=== PATIENT | female | born 1945 | race Native Hawaiian/Other Pacific Islander ===

== ENCOUNTER 2017-04-15 00:01 | Emergency (ER) | payer MEDICARE ==
[2017-04-15 00:27] VITALS: BP 145/76; PULSE 94; RESP 19; O2SAT 99
--- NOTE | 2017-04-15 00:58 | ED PDOC ---
Arrival/HPI - General Historian: Patient - History of Present Illness Time/Duration: 4-6 hours Symptom Onset: Sudden Symptom Course: Unchanged Activities at Onset: Rest, Light Context: Home - General Chief Complaint: Dizziness/Lightheaded - History of Present Illness Narrative History of Present Illness (Text): 04/15/17 00:58 Mrs. Duarte is a 72 year old female with no significant past medical history who presents to the [facility] [place] department with a chief complaint of dizziness. Patient states that earlier this afternoon, she was busy with housework when she suddenly felt dizzy. She immediately sat down and reports that after 15-20 minutes that the dizziness subsided. She reports that later on in the evening, she had an episode of shaking chills and decided that she should get checked out. She also mentioned that she has been having urinary frequency without any associated dysuria or hematuria. Patient denies any fever , weight loss, night sweats, headache, changes in her vision/hearing/smell, dysphagia, chest pain, palpitations, shortness of breath, cough, wheezing, abdominal pain, N/V, diarrhea, constipation, rash, seizure, changes in her gait , slurred speech or any numbness/tingling/weakness of any extremity. (KATIE WINN) Past Medical History - Provider Review Nursing Documentation Reviewed: Yes - Travel History Have you recently traveled outside [place] w/in the past 3 mons?: No - Past History Past History: No Previous - Infectious Disease Hx of Infectious Diseases: None - Tetanus Immunization Tetanus Immunization: Unknown - Neurological Hx Dizziness: Yes - Psychiatric Hx Substance Use: No - Surgical History Hx Cataract Extraction: Yes Hx Hysterectomy: Yes - Anesthesia Hx Anesthesia: Yes Hx Anesthesia Reactions: No Hx Malignant Hyperthermia: No Family/Social History - Physician Review Nursing Documentation Reviewed: Yes Family/Social History: No Known Family HX Smoking Status: Never Smoked Hx Alcohol Use: No Hx Substance Use: No Allergies/Home Meds Allergies/Adverse Reactions: Allergies No Known Allergies Allergy (Verified 04/15/17 00:27) Home Medications: Home Meds Medication Instructions Recorded Confirmed No Known Home Med 04/15/17 04/15/17 Review of Systems - Physician Review All systems were reviewed & negative as marked: Yes - Review of Systems Constitutional: Other (Endorses shaking chills). absent: Normal, Weight Change , Fevers, Night Sweats Eyes: Normal. absent: Vision Changes ENT: Normal, Other (Denies changes in smell). absent: Hearing Changes Respiratory: Normal. absent: SOB, Cough, Wheezing Cardiovascular: Normal. absent: Chest Pain, Palpitations, Syncope Gastrointestinal: Normal. absent: Abdominal Pain, Constipation, Diarrhea, Nausea, Vomiting Genitourinary Female: Frequency. absent: Normal, Dysuria, Hematuria Musculoskeletal: Normal Skin: Normal. absent: Rash Neurological: Dizziness, Other (Denies any numbness/tingling/weakness of any extremity). absent: Normal, Headache, Focal Weakness, Gait Changes, Speech Changes, Facial Droop, Seizure Physical Exam Vital Signs Reviewed: Yes Temperature: Afebrile Blood Pressure: Normal Pulse: Regular Respiratory Rate: Normal Appearance: Positive for: Well-Appearing, Non-Toxic, Comfortable Pain Distress: None Mental Status: Positive for: Alert and Oriented X 3 - Systems Exam Head: Present: Atraumatic, Normocephalic Pupils: Present: PERRL Extroacular Muscles: Present: EOMI Conjunctiva: Present: Normal Mouth: Present: Moist Mucous Membranes Pharnyx: Present: Normal. No: ERYTHEMA, EXUDATE, TONSILS ENLARGED Nose (External): Present: Atraumatic Nose (Internal): Present: Normal Inspection Neck: Present: Normal Range of Motion, Trachea Midline. No: Meningeal Signs, MIDLINE TENDERNESS, Paraspinal Tenderness, JVD, Lymphadenopathy Respiratory/Chest: Present: Clear to Auscultation, Good Air Exchange. No: Respiratory Distress, Accessory Muscle Use, Wheezes, Decreased Breath Sounds, Rales, Retracting, Rhonchi, Tachypneic, Tender to Palpation Cardiovascular: Present: Regular Rate and Rhythm, Normal S1, S2, Peripheal Pulses Present. No: Murmurs, Irregular Rhythm, Tachycardic, Bradycardic, Rub, Gallop, Muffled Abdomen: Present: Normal Bowel Sounds. No: Tenderness, Distention, Peritoneal Signs Back: Present: Normal Inspection. No: CVA Tenderness, Midline Tenderness, Paraspinal Tenderness Upper Extremity: Present: Normal Inspection, Normal ROM, NORMAL PULSES, Neurovascularly Intact, Capillary Refill < 2s. No: Cyanosis, Edema Lower Extremity: Present: Normal Inspection, NORMAL PULSES, Normal ROM, Neurovascularly Intact, Capillary Refill < 2 s. No: Edema, CALF TENDERNESS Neurological: Present: GCS=15, CN II-XII Intact, Speech Normal, Motor Func Grossly Intact, Normal Sensory Function, Gait Normal Skin: Present: Warm, Dry, Normal Color. No: Rashes Lymphatic: No: Cervical Adenopathy Psychiatric: Present: Alert, Oriented x 3, Normal Insight, Normal Concentration Vital Signs Temp Pulse Resp BP Pulse Ox 04/15/17 00:21 97 F L 94 H 19 145/76 99 Medical Decision Making - Lab Interpretations I have reviewed the lab results: Yes Interpretation: All labs normal - RAD Interpretation Diesel Engine Specialist: Radiologist - EKG Interpretation Interpreted by ED Physician: Yes Type: 12 lead EKG ED Course and Treatment: Pt seen and evaluated with health care / medical job titles. Pt, with no significant past medical history, presented for dizziness, chills, and urinary frequency. Aware and agree with HPI, clinical findings, plan, and management. Plan: -- CT Head w/o contrast -- EKG -- Chest X-ray -- Labs, cardiac enzymes, BNP -- UA -- Reassess and disposition (Bharathi Fish) 04/15/17 01:10 Impression: 72 year old female with no significant past medical history who presents to the [facility] [place] department with a chief complaint of dizziness Plan: -CBC, CMP, Urinalysis, Cardiac Iso, BNP -EKG -Chest X-Ray -CT head w/o contrast -Reassess and disposition Prior Visits: No previous visits (KATIE WINN) - Lab Interpretations Lab Results: 04/15/17 00:50 04/15/17 00:50 Lab Results 04/15/17 00:50: Urine Color Straw, Urine Appearance Cloudy, Urine pH 7.0, Ur Specific Thicket 1.010, Urine Protein Trace H, Urine Glucose (UA) Negative, Urine Ketones Negative, Urine Blood Trace-lysed H, Urine Nitrate Negative, Urine Bilirubin Negative, Urine Urobilinogen 0.2, Ur Leukocyte Esterase Negative , Urine RBC 0 - 2, Urine WBC 0 - 2, Ur Epithelial Cells 0 - 2 04/15/17 00:50: WBC 7.1, RBC 4.05, Hgb 12.9, Hct 37.2, MCV 91.9, MCH 31.9, MCHC 34.7, RDW 12.6, Plt Count 210, MPV 8.8, Gran % 70.6 H, Lymph % (Auto) 17.2 L, [place] % (Auto) 8.0 H, Eos % (Auto) 3.8, Baso % (Auto) 0.4, Gran # 5.00, Lymph # 1.2, [place] # 0.6, Eos # 0.3, Baso # 0.03 04/15/17 00:50: Sodium 140, Potassium 3.8, Chloride 100, Carbon Dioxide 28, Anion Gap 16, BUN 9, Creatinine 0.7, Est GFR ( Amer) > 60, Est GFR (Non- Af Amer) > 60, Random Glucose 99, Calcium 10.0, Total Bilirubin 0.5, AST 34, ALT 36, Alkaline Phosphatase 58, Lactate Dehydrogenase 633, Total Creatine Kinase 83, Troponin I < 0.01, NT-Pro-B Natriuret Pep 148, Total Protein 8.5 H, Albumin 5.1 H, Globulin 3.4, Albumin/Globulin Ratio 1.5 - RAD Interpretation Radiology Orders: 04/15/17 00:49 HEAD W/O CONTRAST [CT] Stat CHEST PORTABLE [RAD] Stat Disposition/Present on Arrival - Present on Arrival Any Indicators Present on Arrival: No History of DVT/PE: No History of Uncontrolled Diabetes: No Urinary Catheter: No History of Decub. Ulcer: No History Surgical Site Infection Following: None - Disposition Have Diagnosis and Disposition been Completed?: Yes Disposition Time: 02:50 - Disposition Diagnosis: Vertigo Condition: GOOD Discharge Instructions (ExitCare): Vertigo (ED) Additional Instructions: Ms. Duarte, thank you for letting us take care of you today. Your provider was Dr. Fish. You were treated for dizziness. The emergency medical care you received today was directed at your acute symptoms. If you were prescribed any medication, please fill it and take as directed. It may take several days for your symptoms to resolve. Return to the Emergency Department if your symptoms worsen, do not improve, or if you have any other problems. Please contact your doctor or call one of the physicians/clinics you have been referred to that are listed on the Patient Visit Information form that is included in your discharge packet. Bring any paperwork you were given at discharge with you along with any medications you are taking to your follow up visit. Our treatment cannot replace ongoing medical care by a primary care provider (PCP) outside of the emergency department. PLEASE FOLLOW UP WITH YOUR PRIMARY CARE DOCTOR WITHIN ONE TO TWO WEEKS Thank you for allowing the [facility] team to be part of your care today. If you had an X-Ray or CT scan: A Radiologist will review the ED reading if any change in treatment is needed we will contact you. Forms: [facility]) ([place])
[2017-04-15 01:11] LABS: BASO # 0.03 K/mm3 (0.0-2.0); BASO % 0.4 % (0.0-3.0); EOS # 0.3 (0.0-0.7); EOS % 3.8 % (1.5-5.0); GRAN % 70.6 % (50.0-68.0); HEMATOCRIT 37.2 % (36.0-48.0); LYMPH # 1.2 (1.2-3.4); LYMPH % 17.2 % (22.0-35.0); MEAN CELL VOLUME 91.9 fl (80.0-105.0); MEAN CORPUSCULAR HEMOGLOBIN 31.9 pg (25.0-35.0); MEAN CORPUSCULAR HGB CONC 34.7 g/dl (31.0-37.0); MEAN PLATELET VOLUME 8.8 fl (7.0-11.0); MONO # 0.6 (0.1-0.6); RED CELL DISTRIBUTION WIDTH 12.6 % (11.5-14.5); WHITE BLOOD COUNT 7.1 10^3/ul (4.5-11.0)
[2017-04-15 01:12] LABS: URINE BILIRUBIN NEGATIVE (NEGATIVE); URINE BLOOD TRACE-LYSED (NEGATIVE); URINE GLUCOSE (UA) NEGATIVE (NEGATIVE); URINE KETONE NEGATIVE (NEGATIVE); URINE LEUKOCYTE ESTERASE NEGATIVE Leu/uL (NEGATIVE); URINE PROTEIN TRACE mg/dL (<30 mg/dL); URINE UROBILINOGEN 0.2 E.U./dL (<1 E.U./dL)
[2017-04-15 01:19] LABS: URINE APPEARANCE CLOUDY (CLEAR); URINE COLOR STRAW (YELLOW)
[2017-04-15 01:20] LABS: ALB/GLOB RATIO 1.5 (1.1-1.8); ALKALINE PHOSPHATASE 58 U/L (38-126); ALT/SGPT 36 U/L (7-56); AST/SGOT 34 U/L (14-36); BILIRUBIN,TOTAL 0.5 mg/dL (0.2-1.3); BLOOD UREA NITROGEN 9 mg/dL (7-21); CARBON DIOXIDE 28 mmol/L (21-33); CHLORIDE 100 mmol/L (98-107); GFR AFRICAN-AMERICAN > 60; GLUCOSE,RANDOM 99 mg/dL (70-110); POTASSIUM 3.8 mmol/L (3.6-5.0); SODIUM 140 mmol/L (132-148); TOTAL PROTEIN 8.5 g/dL (5.8-8.3)
[2017-04-15 01:30] LABS: URINE EPITHELIAL CELLS 0 - 2 /hpf (0-5); URINE RBC 0 - 2 /hpf (0-2); URINE WBC 0 - 2 /hpf (0-6)
--- NOTE | 2017-04-15 01:36 | CT ---
EXAM: CT Head Without Intravenous Contrast EXAM DATE/TIME: 04/15/2017 12:49 AM CLINICAL HISTORY: 72 years old, female; Signs and symptoms; Dizziness TECHNIQUE: Axial computed tomography images of the head/brain without intravenous contrast. All CT scans at this facility use one or more dose reduction techniques, viz.: automated exposure control; ma/kV adjustment per patient size (including targeted exams where dose is matched to indication; i.e. head); or iterative reconstruction technique. COMPARISON: There are no prior studies for comparison. FINDINGS: Brain: Ventricles are normal in size and configuration. There is no midline shift. There is mild prominence of sulci and gyri. There are no intra-axial or extra-axial mass lesions or areas of hemorrhage.There are basal ganglia calcifications bilaterally. There is an age-indeterminate lacunar infarct in left basal ganglia. There are no abnormal fluid collections. Franco-white differentiation is maintained. Ventricles: See above Bones: Cranial vault is intact. Soft tissues: unremarkable Sinuses: There is mucoperiosteal thickening in frontal and ethmoid sinuses Ears and mastoids: Middle ears and mastoids are unremarkable Orbits: Orbital contents are unremarkable. IMPRESSION: Age-indeterminate left basal ganglia lacunar infarct, no bleed
[2017-04-15 01:51] LABS: TROPONIN I < 0.01 ng/mL
[2017-04-15 03:32] VITALS: TEMP 97
--- NOTE | 2017-04-15 08:42 | RAD ---
HISTORY: dizziness COMPARISON: No prior. FINDINGS: LUNGS: No active pulmonary disease. PLEURA: No significant pleural effusion identified, no pneumothorax apparent. CARDIOVASCULAR: Normal. OSSEOUS STRUCTURES: Thoracic levoscoliosis. Calcific tendinitis of right shoulder. VISUALIZED UPPER ABDOMEN: Normal. OTHER FINDINGS: None. IMPRESSION: No active disease.
--- NOTE | 2017-04-15 22:16 | CARD ---
APPROVED REPORT EKG Measurement Heart [id number] <Conclusion> Normal sinus rhythm Incomplete right bundle branch block Borderline ECG
== END 2017-04-15 02:59 | disposition home or self-care (01) ==
LOC: ED 00:01
DX: R42 Dizziness and giddiness (principal)